=== PATIENT | male | born 1975 ===

== ENCOUNTER → 2018-05-09 | Outpatient (CLI) | payer BC | LOC: GMAJ 11:16 | PROVIDERS: ATTEND Family Medicine | DX: I10 Essential (primary) hypertension (principal); F31.12 Bipolar disorder, current episode manic without psychotic features, moderate ==

== ENCOUNTER → 2018-06-19 | Outpatient (CLI) | payer SELFPAY | LOC: GMAJ 11:24 | PROVIDERS: ATTEND Family Medicine | DX: F31.12 Bipolar disorder, current episode manic without psychotic features, moderate (principal) ==